=== PATIENT | female | born 1955 | race Caucasian/White ===

== ENCOUNTER 2016-12-11 16:51 | Emergency (ER) | payer OTHER ==
[~2016-12-11] VITALS: Ht 167.6 cm; Wt 110.9 kg
[~2016-12-11 16:51] MED LIST: ACET-66 PO; CETI-260 PO; DIPH25 PO; OMEP10 PO; OXYB5TAB10 PO; PROP15DR28 OU
[2016-12-11] MEDS ORDERED: LORA10TA60 PO (17:04)
[2016-12-11] MEDS ORDERED: GUAI600T PO (17:04)
[2016-12-11] MEDS ORDERED: DULO30CA51 PO (17:04)
[2016-12-11] MEDS ORDERED: OMEP20 PO (17:04)
[2016-12-11] MEDS ORDERED: ACETAMINOPHEN 325 MG TABLET PO ONE (18:30)
[2016-12-11 19:15] LABS: INFLUENZA TYPE B NEGATIVE FOR TYPE B (NEGATIVE)
[2016-12-11 20:14] VITALS: BP 129/87
== END 2016-12-11 20:16 | disposition home or self-care (01) ==
LOC: EMS 16:52
DX: J06.9 Acute upper respiratory infection, unspecified (principal); K21.9 Gastro-esophageal reflux disease without esophagitis; Z88.6 Allergy status to analgesic agent; Z88.8 Allergy status to other drugs, medicaments and biological substances
CPT/HCPCS: 87804; 99284

== ENCOUNTER 2017-10-28 01:24 | Inpatient (IN) | payer OTHER ==
[~2017-10-28] VITALS: Ht 167.6 cm; Wt 99.5 kg
[2017-10-28] VITALS (7 sets, daily range): BP systolic 121–154; BP diastolic 61–79
[~2017-10-28 01:24] MED LIST changes: -CETI-260 PO; +DULO30CA51 PO; +GUAI600T30 PO; +LORA10TA60 PO; -OMEP10 PO; +OMEP20 PO
[2017-10-28 02:11] LABS: BASOPHILS % (AUTO) 0.3 % (0.0-2.0); EOSINOPHILS % (AUTO) 1.1 % (1.0-6.0); HEMATOCRIT 37.5 % (36-46); HEMOGLOBIN 12.5 g/dL (12.0-16.0); LYMPHOCYTES # (AUTO) 2.4 K/uL (1.0-4.8); LYMPHOCYTES % (AUTO) 25.9 % (22.0-44.0); MEAN CORPUSCULAR HEMOGLOBIN 29.1 pg (26.0-34.0); MEAN CORPUSCULAR HGB CONC 33.4 G/dL (31.0-37.0); MEAN CORPUSCULAR VOLUME 87 fL (80-100); MONOCYTES # (AUTO) 0.7 K/uL (0.1-1.0); NEUTROPHILS # (AUTO) 5.9 K/uL (1.8-7.7); NEUTROPHILS % (AUTO) 64.7 % (40.0-70.0); PLATELET COUNT (AUTO) 298 K/uL (150-450); RED CELL DISTRIBUTION WIDTH 13.5 % (11.5-14.5); WHITE BLOOD COUNT (AUTO) 9.1 K/uL (4.5-11.0)
[2017-10-28 02:17] LABS: ANION GAP 8 mmol/L (8-16); CALCIUM, TOTAL 8.9 mg/dL (8.8-10.5); CARBON DIOXIDE 32 mmol/L (22-29); CHLORIDE 102 mmol/L (98-107); CREATININE 0.71 mg/dL (0.60-1.30); GLOMERULAR FILTR. RATE CALC > 60 mL/min (>60); POTASSIUM 3.4 mmol/L (3.5-5.1); SODIUM SERUM 142 mmol/L (136-145); UREA NITROGEN, BLOOD 16 mg/dL (7-18)
[2017-10-28 02:23] LABS: ALANINE AMINOTRANSFERASE 36 U/L (12-78); ASPARTATE AMINOTRANSFERASE 19 U/L (15-37); BILIRUBIN,TOTAL 0.2 mg/dL (0.1-1.0)
[2017-10-28] MEDS ORDERED: NITROGLYCERIN 2% (1 GM=INCH) PACKET TP ONE (02:30)
[2017-10-28] MEDS ORDERED: ONDANSETRON HCL 4 MG/2 ML VIAL IVP ONE (02:30)
[2017-10-28] MEDS ORDERED: MORPHINE SULFATE 4 MG/ML SYRINGE IVP ONE (02:30)
[2017-10-28] MEDS ORDERED: POTASSIUM CHLORIDE 20 MEQ ER TABLET PO ONE (02:45)
[2017-10-28] MEDS ORDERED: 0.9% SODIUM CHLORIDE 10 ML SYRINGE IVP PRN (04:00)
[2017-10-28] MEDS ORDERED: ACETAMINOPHEN 325 MG TABLET PO PRN (04:00)
[2017-10-28] MEDS ORDERED: ONDANSETRON HCL 4 MG/2 ML VIAL IVP PRN (04:00)
[2017-10-28] MEDS ORDERED: MAGNESIUM HYDROXIDE SUSPENSION 30 ML UDCUP PO PRN (07:15)
[2017-10-28 08:28] LABS: CHOL/HDL RATIO 3.8 (3.9-5.7)
[2017-10-28] MEDS: ACETAMINOPHEN 325 MG TABLET PO PRN ×3 (09:17→22:00)
[2017-10-28] MEDS: PANTOPRAZOLE SODIUM 40 MG DR TABLET PO SCH (09:18)
[2017-10-28] MEDS: METOPROLOL TARTRATE 25 MG TABLET PO SCH ×2 (09:27→21:51)
[2017-10-29] MEDS ORDERED: ZOLPIDEM TARTRATE 5 MG TABLET PO PRN (00:15)
[2017-10-29] MEDS: OxyCODONE HCL/ACETAMINOPHEN 5-325 MG TABLET PO PRN ×2 (00:34→07:58)
[2017-10-29 00:38] VITALS: BP 123/79
[2017-10-29 04:19] VITALS: BP 126/56
[2017-10-29 07:41] VITALS: BP 114/69
[2017-10-29] MEDS: PANTOPRAZOLE SODIUM 40 MG DR TABLET PO SCH (07:58)
[2017-10-29] MEDS: METOPROLOL TARTRATE 25 MG TABLET PO SCH (07:58)
[2017-10-29] MEDS: ONDANSETRON HCL 4 MG/2 ML VIAL IVP PRN ×2 (10:00→15:49)
[2017-10-29 11:26] VITALS: BP 125/73
[2017-10-29] MEDS ORDERED: MethylPREDNISolone SOD SUCC 125 MG/2 ML VIAL IVP ONE (15:15)
[2017-10-29 15:50] VITALS: BP 132/70
[2017-10-29] MEDS ORDERED: PNEUMOCOCCAL VACCINE POLYVALENT 0.5 ML VIAL [PPSV23] IM ONE (16:45)
[2017-10-29] MEDS ORDERED: PRED20 PO (18:42)
[2017-10-29] MEDS ORDERED: METO25 PO (18:43)
== END 2017-10-29 19:15 | disposition home or self-care (01) | DRG 203 ==
LOC: EMS 01:25 → AHU 03:44 → 5S 21:00
PROVIDERS: ADMIT Internal Medicine; ATTEND Internal Medicine
PROC: 3E0234Z Introduction of Serum, Toxoid and Vaccine into Muscle, Percutaneous Approach (ICD-10-PCS; principal; 2017-10-29)
DX: R07.9 Chest pain, unspecified (principal); I10 Essential (primary) hypertension; E66.9 Obesity, unspecified; F32.9 Major depressive disorder, single episode, unspecified; K21.9 Gastro-esophageal reflux disease without esophagitis; Z90.710 Acquired absence of both cervix and uterus; Z23 Encounter for immunization; Z88.5 Allergy status to narcotic agent; Z88.6 Allergy status to analgesic agent; Z88.8 Allergy status to other drugs, medicaments and biological substances; Z68.35 Body mass index [BMI] 35.0-35.9, adult; Z79.899 Other long term (current) drug therapy
CPT/HCPCS: 90471; 93005; 93306; 96374; 96375; 99285; J2270; J2405; J2930

== ENCOUNTER 2019-09-25 14:42 | Emergency (ER) | payer OTHER ==
[~2019-09-25] VITALS: Ht 170.2 cm; Wt 100.0 kg
[~2019-09-25 14:42] MED LIST changes: -ACET-66 PO; -DIPH25 PO; -DULO30CA51 PO; +DULO30CA52 PO; -GUAI600T30 PO; -LORA10TA60 PO; +METO25 PO; -OXYB5TAB10 PO; -PROP15DR28 OU
[2019-09-25] MEDS ORDERED: MORPHINE SULFATE 4 MG/ML SYRINGE IVP ONE (16:00)
[2019-09-25 16:03] LABS: BASOPHILS % (AUTO) 0.4 % (0.0-2.0); HEMATOCRIT 39.9 % (36-46); LYMPHOCYTES # (AUTO) 1.7 K/uL (1.0-4.8); LYMPHOCYTES % (AUTO) 22.4 % (22.0-44.0); MEAN CORPUSCULAR HEMOGLOBIN 28.8 pg (26.0-34.0); MEAN CORPUSCULAR HGB CONC 32.7 G/dL (31.0-37.0); MEAN CORPUSCULAR VOLUME 88 fL (80-100); MONOCYTES # (AUTO) 0.5 K/uL (0.1-1.0); MONOCYTES % (AUTO) 6.1 % (2.0-9.0); NEUTROPHILS # (AUTO) 5.4 K/uL (1.8-7.7); NEUTROPHILS % (AUTO) 70.1 % (40.0-70.0); PLATELET COUNT (AUTO) 281 K/uL (150-450); RED BLOOD CELL COUNT(AUTO) 4.52 MIL/uL (4.00-5.20); RED CELL DISTRIBUTION WIDTH 13.7 % (11.5-14.5)
[2019-09-25 16:13] LABS: ANION GAP 8 mmol/L (8-16); CALCIUM, TOTAL 8.4 mg/dL (8.8-10.5); CARBON DIOXIDE 33 mmol/L (22-29); CHLORIDE 104 mmol/L (98-107); CREATININE 0.87 mg/dL (0.60-1.30); GLOMERULAR FILTR. RATE CALC > 60 mL/min (>60); GLUCOSE,RANDOM 98 mg/dL (70-110); POTASSIUM 4.2 mmol/L (3.5-5.1); SODIUM SERUM 145 mmol/L (136-145); UREA NITROGEN, BLOOD 16 mg/dL (7-18)
[2019-09-25 16:19] LABS: ALANINE AMINOTRANSFERASE 23 U/L (12-78); ALBUMIN 3.7 g/dL (3.4-5.0); ALKALINE PHOSPHATASE 66 U/L (46-116); ASPARTATE AMINOTRANSFERASE 13 U/L (15-37); BILIRUBIN,TOTAL 0.2 mg/dL (0.1-1.0); TOTAL PROTEIN, SERUM 7.1 g/dL (6.4-8.2)
[2019-09-25 17:28] VITALS: BP 142/60
== END 2019-09-25 17:49 | disposition home or self-care (01) ==
LOC: EMS 14:44
DX: R07.89 Other chest pain (principal); M54.6 Pain in thoracic spine; R11.0 Nausea; F32.9 Major depressive disorder, single episode, unspecified; K21.9 Gastro-esophageal reflux disease without esophagitis; I10 Essential (primary) hypertension; Z90.710 Acquired absence of both cervix and uterus; Z88.6 Allergy status to analgesic agent; Z88.8 Allergy status to other drugs, medicaments and biological substances
CPT/HCPCS: 36415; 71045; 80053; 83880; 84484; 85025; 85379; 93005; 96374; 99284; J2270

== ENCOUNTER 2020-03-26 01:01 | Emergency (ER) | payer OTHER ==
[~2020-03-26] VITALS: Ht 167.6 cm; Wt 98.6 kg
[2020-03-26] MEDS ORDERED: DIPH-543 PO (01:13)
[2020-03-26] MEDS ORDERED: DOCU-275 PO (01:13)
[2020-03-26] MEDS ORDERED: HydrOXYzine HCL 25 MG TABLET PO ONE (02:15)
[2020-03-26] MEDS ORDERED: DEXAMETHASONE 4 MG TABLET PO ONE (03:00)
[2020-03-26 03:22] VITALS: BP 119/78
== END 2020-03-26 03:27 | disposition home or self-care (01) ==
LOC: EMS 01:02
DX: L29.9 Pruritus, unspecified (principal); F32.9 Major depressive disorder, single episode, unspecified; K21.9 Gastro-esophageal reflux disease without esophagitis; Z90.710 Acquired absence of both cervix and uterus; Z88.6 Allergy status to analgesic agent
CPT/HCPCS: 99283; J8540

== ENCOUNTER 2020-09-14 21:16 | Emergency (ER) | payer OTHER ==
[~2020-09-14] VITALS: Ht 167.6 cm; Wt 98.6 kg
[~2020-09-14 21:16] MED LIST changes: +DIPH-543 PO; +DOCU-275 PO
[2020-09-14] MEDS ORDERED: CHOL100018 PO (21:27)
[2020-09-14] MEDS ORDERED: OXYB5XL PO (21:27)
[2020-09-14] MEDS ORDERED: CALC-1038 PO (21:27)
[2020-09-14] MEDS ORDERED: ACET-66 PO (21:27)
[2020-09-14] MEDS ORDERED: OMEP20 PO (21:27)
[2020-09-14 22:31] LABS: BASOPHILS % (AUTO) 0.7 % (0.0-2.0); EOSINOPHILS % (AUTO) 1.4 % (1.0-6.0); HEMATOCRIT 36.4 % (36-46); LYMPHOCYTES # (AUTO) 1.9 K/uL (1.0-4.8); LYMPHOCYTES % (AUTO) 25.2 % (22.0-44.0); MEAN CORPUSCULAR HEMOGLOBIN 28.7 pg (26.0-34.0); MEAN CORPUSCULAR VOLUME 87 fL (80-100); MONOCYTES # (AUTO) 0.6 K/uL (0.1-1.0); MONOCYTES % (AUTO) 7.6 % (2.0-9.0); NEUTROPHILS # (AUTO) 4.9 K/uL (1.8-7.7); NEUTROPHILS % (AUTO) 65.1 % (40.0-70.0); PLATELET COUNT (AUTO) 240 K/uL (150-450); RED BLOOD CELL COUNT(AUTO) 4.18 MIL/uL (4.00-5.20); RED CELL DISTRIBUTION WIDTH 13.5 % (11.5-14.5)
[2020-09-14 22:35] LABS: ANION GAP 3 mmol/L (8-16); CALCIUM, TOTAL 8.9 mg/dL (8.8-10.5); CARBON DIOXIDE 31 mmol/L (22-29); CHLORIDE 104 mmol/L (98-107); CREATININE 0.82 mg/dL (0.60-1.30); GLOMERULAR FILTR. RATE CALC > 60 mL/min (>60); GLUCOSE,RANDOM 104 mg/dL (70-110); POTASSIUM 4.3 mmol/L (3.5-5.1); SODIUM SERUM 138 mmol/L (136-145); UREA NITROGEN, BLOOD 13 mg/dL (7-18)
[2020-09-14 22:45] LABS: APPEARANCE,URINE CLEAR (CLEAR); BILIRUBIN,URINE NEGATIVE (NEGATIVE); GLUCOSE, URINE (UA) NEGATIVE (NEGATIVE); KETONES,URINE NEGATIVE (NEGATIVE); LEUKOCYTE ESTERASE ,URINE NEGATIVE (NEGATIVE); NITRATE,URINE NEGATIVE (NEGATIVE); OCCULT BLOOD,URINE NEGATIVE (NEGATIVE); PH,URINE 6.5 (5.0-8.0); PROTEIN,URINE NEGATIVE (NEGATIVE)
[2020-09-14 22:49] LABS: ALANINE AMINOTRANSFERASE 26 U/L (12-78); ALBUMIN 3.6 g/dL (3.4-5.0); ALKALINE PHOSPHATASE 73 U/L (46-116); ASPARTATE AMINOTRANSFERASE 12 U/L (15-37); BILIRUBIN,TOTAL 0.3 mg/dL (0.1-1.0); HCG,QUANTITATIVE 2 mIU/mL (0-6); LIPASE 154 U/L (73-393); TOTAL PROTEIN, SERUM 7.2 g/dL (6.4-8.2)
[2020-09-14] MEDS ORDERED: LIDOCAINE 5% TRANSDERMAL PATCH TD ONE (23:00)
[2020-09-15] MEDS ORDERED: IOVERSOL 350 MG/ML 150 ML VIAL ONE (00:11)
[2020-09-15] MEDS ORDERED: SODIUM CHLORIDE 0.9% 100 ML ONE (00:12)
[2020-09-15 01:40] VITALS: BP 136/64
== END 2020-09-15 02:00 | disposition home or self-care (01) ==
LOC: EMS 21:16
DX: R10.11 Right upper quadrant pain (principal); K21.9 Gastro-esophageal reflux disease without esophagitis; I10 Essential (primary) hypertension; Z90.710 Acquired absence of both cervix and uterus; Z88.6 Allergy status to analgesic agent; Z88.8 Allergy status to other drugs, medicaments and biological substances
CPT/HCPCS: 36415; 74177; 80053; 81003; 83690; 84484; 84702; 85025; 93005; 99285; J7050; Q9967

== ENCOUNTER 2021-11-27 19:02 | Emergency (ER) | payer OTHER ==
[~2021-11-27 19:02] MED LIST changes: +ACET-3385 PO; +CALC-1038 PO; +CHOL-35 PO; -DOCU-275 PO; -METO25 PO; +OXYB-34 PO
== END 2021-11-27 21:11 | disposition left against medical advice (07) ==
LOC: EMS 19:04
DX: M79.606 Pain in leg, unspecified (principal); Z53.21 Procedure and treatment not carried out due to patient leaving prior to being seen by health care provider

== ENCOUNTER 2022-09-09 08:56 | Day surgery (SDC) | payer OTHER ==
[~2022-09-09] VITALS: Ht 170.2 cm; Wt 101.2 kg
[~2022-09-09 08:56] MED LIST changes: -CHOL-35 PO; +CHOL25TA4 PO; -DIPH-543 PO; -DULO30CA52 PO; +METF-1211 PO; +SODIUM CHLORIDE 0.9% 1,000 ML ONE
[2022-09-09] MEDS ORDERED: SODIUM CHLORIDE 0.9% 1,000 ML IV ONE (09:00)
[2022-09-09 09:19] LABS: COVID AG,FIA SOURCE NASAL SWAB
[2022-09-09] MEDS ORDERED: LIDOCAINE/PF 2% 5 ML VIAL IM ONE (12:00)
[2022-09-09] MEDS ORDERED: PROPOFOL 1% 20 ML VIAL IVP ONE (12:00)
== END 2022-09-09 13:15 | disposition home or self-care (01) ==
LOC: SURGERY 08:56
PROVIDERS: ATTEND Internal Medicine Gastroenterology
DX: Z09 Encounter for follow-up examination after completed treatment for conditions other than malignant neoplasm (principal); D12.4 Benign neoplasm of descending colon; K64.0 First degree hemorrhoids; Z20.822 Contact with and (suspected) exposure to COVID-19; K21.9 Gastro-esophageal reflux disease without esophagitis; Z86.010 Personal history of colon polyps; M19.049 Primary osteoarthritis, unspecified hand; F32.9 Major depressive disorder, single episode, unspecified; Z79.899 Other long term (current) drug therapy; Z98.890 Other specified postprocedural states; Z88.8 Allergy status to other drugs, medicaments and biological substances; Z90.710 Acquired absence of both cervix and uterus
CPT/HCPCS: 45385; 87426; C1769; J2704; J3490; J7030; C9803

== ENCOUNTER 2023-04-07 20:09 | Emergency (ER) | payer OTHER ==
[~2023-04-07] VITALS: Ht 170.2 cm; Wt 104.5 kg
[~2023-04-07 20:09] MED LIST changes: -SODIUM CHLORIDE 0.9% 1,000 ML ONE
[2023-04-07 20:31] VITALS: BP 153/78
== END 2023-04-07 21:32 | disposition left against medical advice (07) ==
LOC: EMS 20:10
DX: M54.50 Low back pain, unspecified (principal); Z53.21 Procedure and treatment not carried out due to patient leaving prior to being seen by health care provider
CPT/HCPCS: 99281; Z7502

== ENCOUNTER 2024-11-02 08:19 | Emergency (ER) | payer OTHER ==
[~2024-11-02] VITALS: Ht 170.2 cm; Wt 97.3 kg
[2024-11-02 08:23] VITALS: TEMP 99
[2024-11-02] MEDS ORDERED: TIRZ2.5P SQ (08:25)
[2024-11-02] MEDS ORDERED: ESZO2TAB46 PO (08:25)
[2024-11-02 08:45] LABS: COVID AG,FIA SOURCE NASAL SWAB
[2024-11-02] MEDS: GuaiFENesin/D-METHORPHAN [SUGAR-FREE] 200-20MG/10 ML SYRUP UDCUP PO ONE (08:55)
[2024-11-02] MEDS: DEXAMETHASONE 4 MG TABLET PO ONE (08:55)
[2024-11-02] MEDS: ACETAMINOPHEN 500 MG TABLET PO ONE (08:55)
[2024-11-02 09:33] LABS: SARS-COV2 (COVID) ANTIGEN,FIA Negative (Negative)
[2024-11-02 09:34] LABS: INFLUENZA TYPE A NEGATIVE FOR TYPE A (NEGATIVE); INFLUENZA TYPE B NEGATIVE FOR TYPE B (NEGATIVE)
[2024-11-02 09:35] LABS: RAPID GROUP A STREP NEGATIVE (NEGATIVE)
[2024-11-02 09:50] VITALS: BP 138/78; PULSE 90; RESP 16; O2SAT 99
== END 2024-11-02 09:51 | disposition home or self-care (01) ==
LOC: EMS 08:21
DX: J02.9 Acute pharyngitis, unspecified (principal); R09.81 Nasal congestion; K21.9 Gastro-esophageal reflux disease without esophagitis; F32.A Depression, unspecified; Z79.899 Other long term (current) drug therapy; Z88.6 Allergy status to analgesic agent; Z90.710 Acquired absence of both cervix and uterus; Z20.822 Contact with and (suspected) exposure to COVID-19
CPT/HCPCS: 99283; 87426; 87430; 87804; J8540

== ENCOUNTER 2025-01-15 06:01 | Emergency (ER) | payer OTHER ==
[~2025-01-15] VITALS: Ht 167.6 cm; Wt 91.8 kg
[~2025-01-15 06:01] MED LIST changes: +ESZO2TAB46 PO; -METF-1211 PO; +OMEP-148 PO; -OMEP20 PO; +TIRZ2.5P SQ
[2025-01-15 06:04] VITALS: TEMP 98.7
[2025-01-15 06:50] LABS: ANION GAP 6 mmol/L (8-16); CALCIUM, TOTAL 8.8 mg/dL (8.8-10.5); CARBON DIOXIDE 29 mmol/L (22-29); CHLORIDE 103 mmol/L (98-107); CREATININE 0.67 mg/dL (0.60-1.30); GLOMERULAR FILTR. RATE CALC > 60 mL/min (>60); GLUCOSE,RANDOM 96 mg/dL (70-110); LIPASE 32 U/L (16-77); POTASSIUM 3.7 mmol/L (3.5-5.1); SODIUM SERUM 138 mmol/L (136-145); UREA NITROGEN, BLOOD 18 mg/dL (7-18)
[2025-01-15 06:55] LABS: ALBUMIN 3.3 g/dL (3.4-5.0); BILIRUBIN,DIRECT 0.2 mg/dL (0.00-0.20); BILIRUBIN,TOTAL 0.7 mg/dL (0.1-1.0); TOTAL PROTEIN, SERUM 6.8 g/dL (6.4-8.2)
[2025-01-15 06:57] LABS: HEMATOCRIT 37.2 % (36-46); HEMOGLOBIN 12.6 g/dL (12.0-16.0); MEAN CORPUSCULAR HEMOGLOBIN 30.1 pg (26.0-34.0); MEAN CORPUSCULAR HGB CONC 33.8 G/dL (31.0-37.0); MEAN CORPUSCULAR VOLUME 89 fL (80-100); PLATELET COUNT (AUTO) 97 K/uL (150-450); RED BLOOD CELL COUNT(AUTO) 4.17 MIL/uL (4.00-5.20); RED CELL DISTRIBUTION WIDTH 12.9 % (11.5-14.5); WHITE BLOOD COUNT (AUTO) 2.3 K/uL (4.5-11.0)
[2025-01-15 06:58] LABS: TROPONIN I-HIGH SENSITIVITY 7 ng/L (<51)
[2025-01-15] MEDS ORDERED: IOHEXOL 350 MG/ML 100 ML VIAL ONE (07:10)
[2025-01-15] MEDS ORDERED: SODIUM CHLORIDE 0.9% 100 ML ONE (07:10)
[2025-01-15 08:08] LABS: BAND NEUTROPHILS % (MANUAL) 2 % (0-5); LYMPHOCYTES % (MANUAL) 84 % (22-44); MONOCYTES % (MANUAL) 9 % (2-9); RBC MORPHOLOGY COMMENT NORMAL RBC MORPH; SEGMENTED NEUTROPHILS % 5 % (40-70); TOTAL CELLS COUNTED 100
[2025-01-15] MEDS ORDERED: DOXY-354 PO (08:45)
[2025-01-15 08:47] LABS: TROPONIN I-HIGH SENSITIVITY 6 ng/L (<51)
[2025-01-15] MEDS: DOXYCYCLINE HYCLATE 100 MG TABLET PO ONE (08:56)
[2025-01-15 08:59] VITALS: BP 104/70; PULSE 90; RESP 16; O2SAT 99
== END 2025-01-15 09:20 | disposition home or self-care (01) ==
LOC: EMS 06:01
DX: D69.6 Thrombocytopenia, unspecified (principal); R07.89 Other chest pain; D84.821 Immunodeficiency due to drugs; M19.90 Unspecified osteoarthritis, unspecified site; F32.A Depression, unspecified; Z79.899 Other long term (current) drug therapy; Z85.3 Personal history of malignant neoplasm of breast; Z88.6 Allergy status to analgesic agent; Z90.710 Acquired absence of both cervix and uterus
CPT/HCPCS: 99285; 71275; 71045; 80048; 80076; 83690; 84484; 85025; 85379; 36415; 93005; Q9967; J7050

== ENCOUNTER 2025-04-12 18:40 | Emergency (ER) | payer OTHER ==
[~2025-04-12] VITALS: Ht 167.6 cm; Wt 92.7 kg
[~2025-04-12 18:40] MED LIST changes: +DOXY-354 PO
[2025-04-12 18:47] VITALS: TEMP 98.4
[2025-04-12 19:55] VITALS: BP 128/65; PULSE 69; RESP 17; O2SAT 98
[2025-04-12] MEDS ORDERED: ACET-2080 PO (20:25)
[2025-04-12] MEDS: ACETAMINOPHEN/CODEINE 300-30 MG TABLET PO ONE (20:43)
== END 2025-04-12 20:58 | disposition home or self-care (01) ==
LOC: EMS 18:40
DX: M54.50 Low back pain, unspecified (principal); C50.911 Malignant neoplasm of unspecified site of right female breast; F32.A Depression, unspecified; K21.9 Gastro-esophageal reflux disease without esophagitis; M19.90 Unspecified osteoarthritis, unspecified site; Z90.710 Acquired absence of both cervix and uterus; Z98.890 Other specified postprocedural states; Z88.6 Allergy status to analgesic agent; Z79.899 Other long term (current) drug therapy
CPT/HCPCS: 99283

== ENCOUNTER 2025-05-22 21:56 | Emergency (ER) | payer OTHER ==
[~2025-05-22] VITALS: Ht 167.6 cm; Wt 95.5 kg
[~2025-05-22 21:56] MED LIST changes: +ACET-2080 PO
[2025-05-22 22:11] VITALS: BP 138/68; PULSE 77; RESP 18; TEMP 98.1; O2SAT 100
[2025-05-22 23:09] LABS: PLATELET COUNT (AUTO) 229 K/uL (150-450); RED BLOOD CELL COUNT(AUTO) 4.16 MIL/uL (4.00-5.20); RED CELL DISTRIBUTION WIDTH 15.5 % (11.5-14.5); WHITE BLOOD COUNT (AUTO) 5.1 K/uL (4.5-11.0)
[2025-05-22 23:18] LABS: CALCIUM, TOTAL 8.5 mg/dL (8.8-10.5); CREATININE 0.59 mg/dL (0.60-1.30); GLOMERULAR FILTR. RATE CALC > 60 mL/min (>60); GLUCOSE,RANDOM 85 mg/dL (70-110); SODIUM SERUM 142 mmol/L (136-145); UREA NITROGEN, BLOOD 18 mg/dL (7-18)
[2025-05-22 23:31] LABS: TROPONIN I-HIGH SENSITIVITY 7 ng/L (<51)
[2025-05-23 02:17] LABS: ASPARTATE AMINOTRANSFERASE 20.0 U/L (15-37); TOTAL PROTEIN, SERUM 7.3 g/dL (6.4-8.2)
== END 2025-05-23 04:54 | disposition home or self-care (01) ==
LOC: EMS 21:56
DX: R10.13 Epigastric pain (principal); F32.A Depression, unspecified; R07.89 Other chest pain; M19.90 Unspecified osteoarthritis, unspecified site; Z90.710 Acquired absence of both cervix and uterus; Z88.6 Allergy status to analgesic agent; Z79.899 Other long term (current) drug therapy
CPT/HCPCS: 71045; 74018; 80048; 80076; 84484; 85025; 93005; 99285; 36415-L1; 36415-TC